=== PATIENT | male | born 1950 | race Caucasian/White ===

== ENCOUNTER 2022-01-28 20:39 | Emergency (ER) | payer BC, SELFPAY ==
[2022-01-28 20:41] VITALS: BP 185/94; PULSE 76; RESP 20; TEMP 36.2; O2SAT 95; BMI 33.6
[2022-01-28 20:51] VITALS: BP 172/92
--- NOTE | 2022-01-28 22:01 | EDS_ITS ---
HPI History of Present Illness Chief Complaint: Chest Other Narrative Narrative: Patient presenting with chest wall pain on the left lower anterior ribs. He states he was walking with tools in his hand when he tripped and fell over onto a cardboard box. He states a cardboard box was full of siding and it did not give. He states corner the box hit him in the left chest wall area. He has a superficial bruise over this area. He does not have any shortness of breath. He has mild pain and he has not take anything for this. It was suggested to him that he come get checked out the emergency room because of the fall. He did not have any head injury or LOC. He denies pain in his extremities. PFSH PFSH Allergy/AdvReac Type Severity Reaction Status Date / Time No Known Allergies Allergy Verified 01/28/22 20:41 Social History Smoking Status: Former smoker ROS ROS ED Constitutional Constitutional ED: Denies chills or fever(s) Eyes Eyes: Denies blurry vision or change in vision ENT ENT ED: Denies rhinorrhea or sore throat Cardiovascular Cardiovascular: Reports as per HPI Respiratory/Chest Respiratory/Chest: Denies cough or dyspnea Gastrointestinal Gastrointestinal: Denies abdominal pain or constipation Genitourinary Genitourinary ED: Denies dysuria or hematuria Musculoskeletal Musculoskeletal: Denies arthralgias or back pain Integumentary Reports Abrasions; Denies abscess Neurologic Neurologic: Denies headache(s) or paresthesias EXAM Physical Exam Const Vital Signs: 01/28/22 20:41 01/28/22 20:51 Temperature 97.2 F L Temperature Source Temporal Pulse Rate 76 Respiratory Rate 20 H Blood Pressure 185/94 H 172/92 H Blood Pressure Mean 124 118 Pulse Ox 95 Oxygen Delivery Method Room Air Positive well nourished General Appearance ED: NAD HEENT Reports moist mucous membranes normocephalic and atraumatic Eyes PERRL and EOMs intact bilaterally General Eye ED: Negative for pale conjunctiva or scleral icterus Chest Wall Chest Narrative: Tenderness to palpation left parasternal region with a linear bruise about 5 cm over this area. There is no crepitance. Equal symmetric chest wall rise and breath sounds. Resp normal respiratory effort and clear to auscultation bilaterally Auscultation: Negative for rales, rhonchi or wheezes Cardio regular rate and regular rhythm GI normal to inspection, nondistended, normoactive bowel sounds Neuro oriented x3 and CN's II-XII intact bilaterally Sensorium / Orientation: awake and alert Psych mental status grossly normal Skin Skin Narrative: As documented above MDM MDM MDM Narrative Medical decision making narrative: Patient with mechanical fall and injury to the left side of his chest wall. He is not short of breath. Patient declines analgesia. Will obtain a two-view chest x-ray. Chest x-ray 2 views on my interpretation shows no acute cardiopulmonary process. Cardiac silhouette is normal. No bony injury. No rib fractures. No pneumothorax. Radiologist interpretation agrees. Patient does not require anything for pain. Given his chest x-ray is normal I feel he can discharged home in stable condition. Impression: 1. Mechanical fall 2. Chest wall contusion Lab Data Attestation: I reviewed the patient's lab results. Radiography Diagnostic Testing: Clinical Impression(s) from Imaging Studies Chest X-Ray 01/28/22 22:07 IMPRESSION: No acute pulmonary disease. Electronically Signed: Vladimir Jose MD at 22:53 EDT , Discharge Plan Triage Chief Complaint: Chest Other ED Provider: Dallas Marks Dx/Rx/DC Orders Primary Care Provider: Harsh Dickerson NP Referrals: Harsh Dickerson BOROUGH COORDINATOR, BOROUGH COORDINATOR-C [Primary Care Provider] -
--- NOTE | 2022-01-28 22:07 | RAD_ITS ---
INDICATION: chest wall pain EXAMINATION: Frontal and lateral views of the chest. COMPARISON: None. FINDINGS: Frontal and lateral views of the chest were obtained. The cardiac silhouette is not enlarged. No confluent airspace disease. No pleural effusion or pneumothorax. No acute fracture identified. RAD/Chest PA and Lateral IMPRESSION: No acute pulmonary disease. Electronically Signed: Vladimir Jose MD at 22:53 EDT ,
[2022-01-28 23:17] VITALS: BP 174/94
== END 2022-01-28 23:18 | disposition home or self-care (01) ==
PROVIDERS: Emergency Provider Student in an Organized Health Care Education/Training Program; PCP Nurse Practitioner Family; Visit Provider Student in an Organized Health Care Education/Training Program
DX: S20.20XA Contusion of thorax, unspecified, initial encounter (principal); Z87.891 Personal history of nicotine dependence; W01.0XXA Fall on same level from slipping, tripping and stumbling without subsequent striking against object, initial encounter
CPT/HCPCS: 71046; 99282

== ENCOUNTER → 2022-07-23 | Outpatient (CLI) | payer BC, SELFPAY ==
--- NOTE | 2022-07-23 16:15 | RAD_ITS ---
INDICATION: PAIN EXAMINATION/TECHNIQUE: X-RAY - LEFT XR Knee 3 Views 3 VIEWS COMPARISON: None. FINDINGS: SOFT TISSUES: No soft tissue swelling or gas. No radiopaque foreign body. BONES/JOINTS: Knee arthroplasty is noted, there is normal alignment, no hardware failure.. Normal alignment. Preservation of the joint space, however small joint effusion present.. No sclerotic or destructive changes observed. RAD/Knee 3 Views IMPRESSION: 1. Status post total knee arthroplasty, normal alignment without evidence fracture or hardware failure. 2. There is a small joint effusion. 3. No destructive bony process. Electronically Signed: Cyrus Kinney MD at 1:09 EDT ,
== END | disposition home or self-care (01) ==
PROVIDERS: PCP Nurse Practitioner Family
DX: M25.562 Pain in left knee (principal)
CPT/HCPCS: 73562

== ENCOUNTER → 2022-12-04 | Outpatient (CLI) | payer BC, SELFPAY ==
--- NOTE | 2022-12-04 11:41 | EKG12_ITS ---
Test Reason : PRE-OP Blood Pressure : / mmHG Vent. Rate : 082 BPM Atrial Rate : 082 BPM P-R Int : 184 ms QRS Dur : 154 ms QT Int : 426 ms P-R-T Axes : 005 -02 000 degrees QTc Int : 497 ms Normal sinus rhythm with sinus arrhythmia Right bundle branch block Abnormal ECG Confirmed by MAT US ([id number]), sports editor DAVID ORTEGA ([id number]) on 12/16/2022 2:04:53 PM Referred By: Matt Silva Confirmed By:MAT SU
[2022-12-04 12:07] LABS: Absolute Lymphocyte Count 1.64 X10^3/uL (0.83-4.51); Absolute Neutrophil Count 5.2 X10^3/uL (2.0-7.7); Basophil# 0.05 X10^3/uL; Basophil% 0.7 % (0-1); Eosinophil# 0.14 X10^3/uL; Eosinophils% 1.8 % (0-5); Hematocrit 40.2 % (40-54); Hemoglobin 13.4 g/dL (13.0-16.5); Lymphocyte # 1.64 X10^3/ul (0.83-4.51); Lymphocyte % 21.5 % (19-41); Mean Corp Hgb Conc 33.3 g/dL (32-36); Mean Platelet Vol. 9.7 fl (6.2-12.0); Monocyte# 0.57 X10^3/uL; Monocyte% 7.5 % (0-10); NRBC Flagged by Analyzer 0 % (0-5); Neutrophil # 5.21 X10^3/uL (2.7-7.7); Neutrophil % 68.1 % (47-70); Platelet Count 325 K/mm3 (150-450); RBC Distribution Width CV 13.9 % (11.6-14.6); RBC Distribution Width SD 44.3 fl (35.1-43.9); Red Blood Count 4.62 M/mm3 (4.6-6.2); White Blood Count 7.6 K/mm3 (4.4-11.0)
[2022-12-04 12:46] LABS: Albumin, Serum 3.1 g/dL (3.2-5.0); Anion Gap 4 (5-15); BUN 16 mg/dL (7-18); BUN/Creat Ratio 17.5 RATIO (10-20); Calcium,Total 9.1 mg/dL (8.5-10.1); Chloride 104 mmol/L (98-107); Creatinine, Serum 0.92 mg/dL (0.70-1.30); EST Glomerular Filtration Rate 86 mL/min (>60); Est Glom Filt Rate - Afr Amer 104 mL/min (>60); Glucose 106 mg/dL (74-106); Potassium 4.4 mmol/L (3.5-5.1); Sodium Level 135 mmol/L (136-145)
== END | disposition home or self-care (01) ==
LOC: PSN 11:38
PROVIDERS: PCP Nurse Practitioner Family; Referring Provider Specialist; Visit Provider Specialist
DX: Z01.818 Encounter for other preprocedural examination (principal); Z01.810 Encounter for preprocedural cardiovascular examination
CPT/HCPCS: 36415; 80048; 82040; 85025; 93005

== ENCOUNTER → 2023-01-02 | Outpatient (CLI) | payer BC, SELFPAY ==
--- NOTE | 2023-01-02 | HIP_PTH ---
PATIENT: JESSICA MANTILLA [facility] U#:[id number] AGE/SX: 72/M ROOM: RE01/02/[address]: Dr. Matt Silva MD : 1950 BED: DIS: 01/02/2023 SPEC #: [id number] RECD: 01/03/23 09:36 STATUS: AVELINA REQ #: [id number] BREE: 01/02/23 00:[address]: Matt Silva DEPT: SURGICAL PATHOLOGY RECD BY: Charan Schulz ENTERED: 01/03/23 09:36 SP TYPE: TOTAL HIP OTHR DR: Harsh Dickerson, STUDENT SPECIALIST-C [facility] Tissues: Hip, NOS Procedures: Decalcification bone/plaque Special Stain Group I Surgery Specimen Level IV AFB Stain (control) GMS Stain (control) HEADER OPERATION: Left anterior total hip arthroplasty PRE-OP DIAGNOSIS: Severe osteoarthritis left hip TISSUE SUBMITTED: Left femur head MICROSCOPIC DIAGNOSIS Left femoral head, total hip replacement/resection: Femoral head with degenerative osteoarthritic changes and focal mild acute and chronic inflammation. Fragments of fibroadipose tissue and fibroconnective tissue acute and chronic inflammation and granulomatous reaction. See comment. SJ:maia 01/08/2023 GROSS DIAGNOSIS Special stains for acid fast bacilli and fungi are negative for organisms; matched controls are appropriate. Clinical correlation and appropriate follow up are necessary. Case has been reviewed in consultation with Dr. Middleton who concurs with the above diagnosis. IDC:AM MICROSCOPIC DESCRIPTION Slides are reviewed. GROSS DESCRIPTION Received is one container labeled with the patient's name and designated left femoral head bone and soft tissue. The specimen consists of a mcneal femoral head measuring 5.0 x 5.0 x 4.5 cm. Also present in the container is a detached piece of bone consistent with portion of femoral neck measuring 5.0 x 3.5 x 1.2 cm. The articular surface displays prominent osteophyte formation, eburnation and bone erosion. Also present in the specimen container are multiple irregular fragments of bone reamings and pink-yellow soft tissue measuring in aggregate 7.5 x 7.0 x 2.5 cm. Crm Manager sections are submitted in two cassettes as follows: 1 - soft tissue, 2 - bone after decalcification. / BRAD:maia 01/03/2023 TC:5 CPT: 53997, 92934, 20539 x2
== END | disposition home or self-care (01) ==
LOC: LABSPEC 15:35
PROVIDERS: PCP Nurse Practitioner Family; Referring Provider Specialist; Visit Provider Specialist
DX: M16.12 Unilateral primary osteoarthritis, left hip (principal)
CPT/HCPCS: 88305; 88311; 88312

== ENCOUNTER → 2023-01-20 | Outpatient (CLI) | payer BC, SELFPAY ==
--- NOTE | 2023-01-20 14:48 | VDLE_ITS ---
Reason For Study: LLE PAin RIGHT LEFT CFV is compressible, spontaneous, phasic, GSV is normal. competent and demonstrates normal CFV is compressible, spontaneous, phasic, augmentation. competent, and demonstrates normal Procedure augmentation. This is a venous duplex using B-mode, color FV is compressible, spontaneous, phasic, flow and spectral Doppler. competent and demonstrates normal Exam performed in department. augmentation. The exam was diagnostic. POP V is compressible, spontaneous, phasic, A preliminary report was called and/or faxed competent and demonstrates normal to [facility]. augmentation. T/P Trunk is compressible. PTV is compressible. LT PerV is compressible. VL/Venous Duplex US, Unilateral Interpretation Summary Deep veins of the left lower extremity are patent and compressible segmentally. There is no evidence of left lower extremity deep vein thrombosis. The left great saphenous vein boone ears patent and compressible segmentally. Ordering Physician: Matt Silva Referring Physician: Harsh Dickerson Performed By: Remi Fortune RVT
== END | disposition home or self-care (01) ==
LOC: CVS 14:39
PROVIDERS: PCP Nurse Practitioner Family; Referring Provider Specialist; Visit Provider Specialist
DX: M79.662 Pain in left lower leg (principal)
CPT/HCPCS: 93971

== ENCOUNTER → 2023-02-04 | Outpatient (CLI) | payer BC, SELFPAY ==
--- NOTE | 2023-02-04 08:02 | EKG12_ITS ---
Test Reason : EDEMA Blood Pressure : / mmHG Vent. Rate : 077 BPM Atrial Rate : 077 BPM P-R Int : 182 ms QRS Dur : 162 ms QT Int : 434 ms P-R-T Axes : 025 038 050 degrees QTc Int : 491 ms Normal sinus rhythm Right bundle branch block Abnormal ECG Confirmed by ARIANA FRANCE, ALEXA ([id number]), state editor DAVID ORTEGA ([id number]) on 02/05/2023 7:22:21 AM Referred By: Lida Prater Confirmed By:ALEXA LANE MD
[2023-02-04 09:37] LABS: Hematocrit 39.8 % (40-54); Hemoglobin 12.9 g/dL (13.0-16.5); Mean Corp Hgb Conc 32.4 g/dL (32-36); Mean Corpuscular Hgb 27.5 pg (27.0-32.0); Mean Corpuscular Volume 84.9 fL (80-94); Mean Platelet Vol. 10.3 fl (6.2-12.0); Platelet Count 310 K/mm3 (150-450); RBC Distribution Width CV 17.1 % (11.6-14.6); Red Blood Count 4.69 M/mm3 (4.6-6.2)
[2023-02-04 09:59] LABS: BNP,B-Type NATRIURETIC PEPTIDE 7.4 pg/mL (0-100)
[2023-02-04 10:06] LABS: ALB/GLOB Ratio 0.9 RATIO (0.9-2.4); AST(SGOT) 8 U/L (15-37); Alanine Aminotransfer ALT/SGPT 21 U/L (16-61); Albumin, Serum 3.3 g/dL (3.2-5.0); Alkaline Phosphatase 121 U/L (45-117); Anion Gap 5 (5-15); BUN 22 mg/dL (7-18); BUN/Creat Ratio 24.1 RATIO (10-20); Calcium,Total 9.1 mg/dL (8.5-10.1); Chloride 102 mmol/L (98-107); Creatinine, Serum 0.91 mg/dL (0.70-1.30); EST Glomerular Filtration Rate 86 mL/min (>60); Est Glom Filt Rate - Afr Amer 104 mL/min (>60); Globulin 3.8 g/dL (2.2-4.2); Glucose 105 mg/dL (74-106); Potassium 4.1 mmol/L (3.5-5.1); Protein, Total 7.1 g/dL (6.4-8.2); Sodium Level 137 mmol/L (136-145)
== END | disposition home or self-care (01) ==
LOC: PSN 08:01
PROVIDERS: PCP Nurse Practitioner Family; Referring Provider Nurse Practitioner Family; Visit Provider Nurse Practitioner Family
DX: R60.0 Localized edema (principal); I10 Essential (primary) hypertension; E66.9 Obesity, unspecified
CPT/HCPCS: 36415; 80053; 83880; 85027; 93005

== ENCOUNTER → 2023-06-24 | Outpatient (CLI) | payer BC, SELFPAY ==
--- NOTE | 2023-06-24 | IMM_PTH ---
PATHOLOGY RESULTS PATIENT: JESSICA MANTILLA LOC: [facility] U#:[id number] AGE/SX: 73/M ROOM: RE06/24/[address]: Dr. Prakash Wheeler MD : 1950 BED: DIS: 06/24/2023 SPEC #: [id number] RECD: 06/26/23 13:29 STATUS: AVELINA REQ #: [id number] BREE: 06/24/23 00:[address]: Prakash Wheeler DEPT: IMMUNOHISTOCHEMISTRY RECD BY: Jo Ontiveros ENTERED: 06/26/23 13:30 SP TYPE: IMMUNO OTHR DR: Lida Prater, KASIA Tissues: PROSTATE RIGHT PROSTATE LEFT Procedures: 34BE12 (add) P40 (add) 34BE12 (initial) PHYSICIAN & INSTITUTION [place] [id number] SPECIMEN INFORMATION: Tissue Source: C - Right prostate, base, core biopsy, D - Left prostate, apex, core biopsy Clinical Info: Elevated PSA Specimen Number: [id number] C & D CPT code: 98433, 41067 x3 METHODOLOGY: Deparaffinized sections of prefer/formalin-fixed tissue or PAP/DQ stained slides are incubated with monoclonal/polyclonal antibodies/oligonucleotide probes. Localization is made via biotin free immunoperoxidase method. Appropriate controls are performed and reacted as expected. Results on target cell population are indicated in the following table: RESULTS: ANTIBODY / CLONE RESULT Block C 34BE12 (34BE12) negative P40 (BC28) negative Block D 34BE12 (34BE12) negative * P40 (BC28) negative * *?Positive in the area of high-grade prostatic intraepithelial neoplasia. These tests were developed and their performance characteristics determined by [facility]. They may not have been cleared or approved by the U.S. Food and Drug Administration. The FDA has determined that such clearance or approval is not necessary. The above immunohistochemical/dualISH markers are ordered and reviewed by the Pathologist. INTERPRETATION: C. Right prostate, base, core biopsy: Adenocarcinoma. D. Left prostate, apex, core biopsy: Adenocarcinoma. Focal high-grade prostatic intraepithelial neoplasia (HGPIN). SJ:maia 06/27/2023
--- NOTE | 2023-06-24 | PROSBIL_PTH ---
PATHOLOGY RESULTS PATIENT: JESSICA MANTILLA [facility] U#:[id number] AGE/SX: 73/M ROOM: RE06/24/[address]: Dr. Prakash Wheeler MD : 1950 BED: DIS: 06/24/2023 SPEC #: [id number] RECD: 06/25/23 09:16 STATUS: AVELINA JAYCEE #: [id number] BREE: 06/24/23 00:[address]: Prakash Wheeler DEPT: SURGICAL PATHOLOGY RECD BY: Charan Schulz ENTERED: 06/25/23 09:17 SP TYPE: PROST BX TATIANA DR: Lida Prater, SENA-Emilee Tissues: PROSTATE RIGHT PROSTATE RIGHT PROSTATE RIGHT PROSTATE LEFT PROSTATE LEFT PROSTATE LEFT Procedures: PROSTATE BX HEADER OPERATION: Bilateral prostate biopsy PRE-OP DIAGNOSIS: Elevated prostate specific antigen TISSUE SUBMITTED: A - Right apex, B - Right mid, C - Right base, D - Left apex, E - Left mid, F - Left base MICROSCOPIC DIAGNOSIS A. Right prostate, apex, core biopsy: Prostatic adenocarcinoma. Bharti grade: 3+3=6 Number of cores involved: 1/1 Proportion of tissue involved: ~25% Perineural invasion: Not identified. Greatest tumor length: 0.3 cm B. Right prostate, mid, core biopsy: Prostatic adenocarcinoma. [place] grade: 3+3=6 Number of cores involved: 1/1 Proportion of tissue involved: ~25% Perineural invasion: Not identified. Greatest tumor length: 0.3 cm C. Right prostate, base, core biopsy: Prostatic adenocarcinoma. Bhrati grade: 3+3=6 Number of cores involved: 1/1 Proportion of tissue involved: ~10-15%, discontinuous Perineural invasion: Not identified. Greatest tumor length: 0.6 cm, discontinuous See comment. D. Left prostate, apex, core biopsy: Prostatic adenocarcinoma. [place] grade: 3+3=6 Number of cores involved: 1/1 Proportion of tissue involved: <5% Perineural invasion: Not identified. Greatest tumor length: 0.1 cm Focal high-grade prostatic intraepithelial neoplasia (HGPIN). See comment. E. Left prostate, mid, core biopsy: Prostatic adenocarcinoma. Bharti grade: 3+3=6 Number of cores involved: 1/1 Proportion of tissue involved: ~50% Perineural invasion: Not identified. Greatest tumor length: 0.6 cm F. Left prostate, base, core biopsy: Prostatic adenocarcinoma. [place] grade: 3+4=7 Number of cores involved: 1/1 Proportion of tissue involved: ~10% Perineural invasion: Not identified. Greatest tumor length: 0.5 cm, discontinuous SJ:maia 06/26/2023 COMMENT C & D. Immunohistochemistry ([id number]) supports the above diagnosis. Case has been reviewed in consultation with Dr. Middleton who concurs with the above diagnosis. IDC:MAGALIS MICROSCOPIC DESCRIPTION Slides are reviewed. GROSS DESCRIPTION A - Received is one container designated prostate, right apex. The specimen consists of one elongated fragment of light mcneal-white soft tissue measuring 1.4 cm in length and 0.1 cm in diameter. The specimen is totally submitted in one cassette. B - Received is one container designated prostate, right mid. The specimen consists of one elongated fragment of light mcneal-white soft tissue measuring 1.2 cm in length and 0.1 cm in diameter. The specimen is totally submitted in one cassette. C - Received is one container designated prostate, right base. The specimen consists of one elongated fragment of light mcneal-white soft tissue measuring 1.0 cm in length and 0.1 cm in diameter. The specimen is totally submitted in one cassette. D - Received is one container designated prostate, left apex. The specimen consists of one elongated fragment of light mcneal-white soft tissue measuring 0.6 cm in length and 0.1 cm in diameter. The specimen is totally submitted in one cassette. E - Received is one container designated prostate, left mid. The specimen consists of one elongated fragment of light mcneal-white soft tissue measuring 1.0 cm in length and 0.1 cm in diameter. The specimen is totally submitted in one cassette. F - Received is one container designated prostate, left base. The specimen consists of one elongated fragment of light mcneal-white soft tissue measuring 1.5 cm in length and 0.1 cm in diameter. The specimen is totally submitted in one cassette. / SJ:rg 06/25/2023 TC:0 [facility]: [id number]
== END | disposition home or self-care (01) ==
LOC: LABSPEC 16:00
PROVIDERS: PCP Nurse Practitioner Family; Referring Provider Urology; Visit Provider Urology
DX: C61 Malignant neoplasm of prostate (principal); R97.20 Elevated prostate specific antigen [PSA]
CPT/HCPCS: 88305; 88341; 88342; G0416

== ENCOUNTER 2023-07-30 05:44 | Day surgery (SDC) | payer BC, SELFPAY ==
[2023-07-30] MEDS: Lactated Ringers 1,000 ML 15 ML IV (06:11)
[2023-07-30 06:12] VITALS: BP 156/92; PULSE 86; RESP 17; TEMP 36.9; O2SAT 96; BMI 33.5
[2023-07-30] MEDS: Cefazolin 2 GM in 0.9% Normal Saline (100mL Bag) 100 ML IV (07:29)
--- NOTE | 2023-07-30 07:50 | PCM.HP.STD ---
HPI - General General Date of Service: 07/30/23 Chief Complaint: Prostate cancer HPI Narrative JESSICA MANTILLA, is a 73 M who presents for placement of gold markers and spacer gel he has intermediate risk prostate cancer plan to start him on hormone deprivation therapy and he has been planning to do radiation therapy [facility] Medical History BPH (benign prostatic hyperplasia) Cancer Elevated PSA Former smoker Gastric reflux History of stress test Hypertension Wears dentures Wears glasses Home Medications acetaminophen 500 mg tablet (Tylenol Extra Strength) 500 mg PO DAILY pain 07/15/23 [History Last Taken 07/29/23] cholecalciferol (vitamin D3) 25 mcg (1,000 unit) tablet 25 mcg PO DAILY 07/15/23 [History Last Taken 07/29/23] famotidine 20 mg tablet 20 mg PO DAILY 07/15/23 [History Last Taken 07/29/23] lisinopril 5 mg tablet 5 mg PO DAILY 07/15/23 [History Last Taken 07/30/23] ciprofloxacin HCl 500 mg tablet (Cipro) 500 mg PO BID #10 tabs 07/30/23 [Rx Last Taken Unknown] Allergy/AdvReac Type Severity Reaction Status Date / Time No Known Allergies Allergy Verified 07/30/23 05:48 Surgical History History of bilateral knee replacement History of left hip replacement History of surgery on upper extremity Social History Smoking Status: Former smoker Smokeless tobacco user: other alcohol intake: never substance use type: does not use caffeine: Yes (4+ caffeinated drinks/day) Vital Signs Vital Signs Vital Signs: 07/30/23 06:12 07/30/23 06:12 Temperature 98.4 F Temperature Source Temporal Pulse Rate 86 Respiratory Rate 17 Respiratory Pattern Normal Blood Pressure 156/92 H Blood Pressure Mean 113 Blood Pressure Source Monitor Blood Pressure Position Semi-Fowlers Blood Pressure Location Left Arm Pulse Ox 96 Oxygen Delivery Method Room Air Weight Weight: 97 kg Body Mass Index (BMI) 33.5
--- NOTE | 2023-07-30 07:51 | DCINST_ITS ---
Discharge Instructions Diet Discharge Diet: No restrictions Activity Discharge Activity: Return to Normal Activity and May Not Drive (while taking narcotic pain medications.) Dressing / Incision Call your doctor if you observe: Fever of 101 or Higher Follow Up Care Please Follow Up With: Prakash Wheeler MD When: Call [phone] for an appointment, 2 weeks for hormone shot Test Results: Test results from this visit will be discussed in further detail at your follow- up appointment, if applicable. Discharge Plan Admission Primary Reason for Your Visit: markers and spacer gel Attending Provider: Prakash Wheeler Primary Care Provider: Lida Prater NP Discharge Orders/Prescriptions Prescriptions: New ciprofloxacin HCl [Cipro] 500 mg tablet 500 mg PO BID Qty: 10 0RF Continued lisinopril 5 mg tablet 5 mg PO DAILY famotidine 20 mg tablet 20 mg PO DAILY acetaminophen [Tylenol Extra Strength] 500 mg tablet 500 mg PO DAILY cholecalciferol (vitamin D3) 25 mcg (1,000 unit) tablet 25 mcg PO DAILY Referrals / Follow Up: Prakash Wheeler MD [Med Staff - Active Staff] - Lida Prater NP, HOME OFFICE CLAIMS EXAMINER-C [Primary Care Provider] - Disposition Disposition (needs filled in before D/C Order can be placed): Home, Self Care
--- NOTE | 2023-07-30 07:51 | OP.PCM_ITS ---
Report of Operation Date of Procedure: 07/30/23 Pre-Operative Diagnosis: Prostate cancer Post-Operative Diagnosis: Same Surgery/Procedure Performed:: Transperineal placement of gold markers and placement of spacer gel risk matrix Description of Surgical Findings:: In the preoperative area I reviewed with the patient how the procedure is done we talked about the risk of the procedure including the risk of infection, bleeding, migration of the spacer gel, the patient is planning to have radiation to the prostate he understands that the spacer gel has demonstrated benefit in reducing the risk of toxicity from the ration radiation to the rectum but there is no guarantees that this spacer gel will prevent any serious complications or toxicity to the rectum or bowels. After reviewing this with the patient and his family organ to proceed with placement of a spacer gel matrix. Patient was taken back to the operating room after smooth induction of anesthesia he was placed supine on the table. The genitals and perineum were prepped and draped in usual sterile fashion. I then introduced a biplanar ultrasound probe into the rectum and performed ultrasonography and identified the Denonvilliers' fascia the prostate mid base and apex and seminal vesicles. The spacer gel mix was then prepared on the back table per manufactures instruction. Under ultrasound guidance in the midline perineum a bevel needle down we advanced through the perineum below the prostate into the space of Denonvilliers' fascia. This space which could be identified by ultrasound with a bright white layer between the prostate and the rectum. I then injected a puff of normal saline to identify the space further. After I confirmed that the needle was in the correct space in the mid prostate and the space of Denonvilliers' fascia between the rectum and the prostate. Then over the course of 15 seconds the gel matrix was injected slowly there was nice separation between the prostate and the rectum at the gel matrix was injected. The position of the gel matrix was confirmed by ultrasound. The penis and testicles were prepped and draped in usual sterile fashion, ultrasound probe was placed into the rectum and biplanar ultrasound was performed on the prostate. Identified the base mid and apex of the prostate identified the transition zone prostate. Then using a needle the first head inspector and center marker was placed into the right base of the prostate, the second head inspector and center marker was placed in the left base of the prostate, and the third core marker was placed in the right apex of the prostate after all 3 markers were placed the placement of the markers were confirmed by ultrasonography. Then the injection needle was removed intact. Patient's perineum was cleaned patient was taken out of stirrups and then taken back to the PACU in good condition.
[2023-07-30 07:55] VITALS: BP 125/76; BP 156/92; PULSE 78; RESP 16; TEMP 36.2; O2SAT 96
[2023-07-30 08:00] VITALS: BP 128/75; BP 156/92; PULSE 78; RESP 16; O2SAT 94
[2023-07-30 08:05] VITALS: BP 137/71; BP 156/92; PULSE 77; RESP 16; TEMP 36.1; O2SAT 94
[2023-07-30 08:21] VITALS: BP 156/92
== END 2023-07-30 08:30 | disposition home or self-care (01) ==
LOC: SDC 05:45 → AC 05:46
PROVIDERS: PCP Nurse Practitioner Family; Referring Provider Urology; Visit Provider Urology
PROC: (CPT 55874; principal; 2023-07-30 07:15)
DX: C61 Malignant neoplasm of prostate (principal); Z87.891 Personal history of nicotine dependence; K21.9 Gastro-esophageal reflux disease without esophagitis; I10 Essential (primary) hypertension; Z79.899 Other long term (current) drug therapy
CPT/HCPCS: 55876; 55874; 00400; J7120; J2405

== ENCOUNTER → 2023-08-06 | Outpatient (CLI) | payer BC, SELFPAY ==
--- NOTE | 2023-08-06 13:10 | MRI_ITS ---
STUDY: MR PELVIS WITH T WITHOUT CONTRAST REASON FOR EXAM: Male, 73 years old. eval extent of disease for prostate cancer -- planning for XRT TECHNIQUE: Standardized prostate protocol MRI pelvis pre and post IV contrast with 3 plane small field of view T2 and diffusion imaging. Wide field of view axial T2 and T1 pre and post IV contrast obtained through the mid to inferior pelvis IV 19 cc clariscan was administered for the contrast portion of the examination. COMPARISON: Chest radiograph January 28, 2022. FINDINGS: Prostate 3.3 x 3.3 x 4.1 cm Transition zone: 1.0 cm irregular nonencapsulated T2 hypointensity at the right anterior apex, series 8 image 21 without focal enhancement, marked increased diffusion and decreased ADC signal, without extraprostatic extension PI-RAD 4. Otherwise unremarkable heterogeneous signal. Peripheral zone: Diffuse heterogeneous T2 signal. 6 mm moderate increased diffusion signal with low ADC left posterior lateral body with associated irregular T2 hypointensity best seen on sagittal sequence image 9, PI-RAD 4. No other discrete mass is seen. No focal hyperenhancement. No focal capsular bulge or extracapsular extension. Normal rectal prostatic angle unremarkable seminal vesicles. Symmetric normal bladder wall. Focal fluid signal posterior to the prostate anterior to the rectum presumably secondary to biopsy. Pelvis: Left hip arthroplasty with surrounding artificial signal change. Cannot exclude intramuscular edema along the left adductor musculature. Otherwise unremarkable bone marrow signal in the limited study [id number]. No adenopathy in the study [id number]. Fat-containing bilateral inguinal hernias without inflammation. MRI/Pelvis W/WO Contrast IMPRESSION: Left posterior lateral body peripheral zone and right anterior apex transition zone PI-RADS 4 lesions without evidence of extraprostatic extension of disease or metastasis in the mid to low pelvis [id number]. Left hip arthroplasty hardware degrades surrounding evaluation. Cannot exclude intramuscular edema surrounding the left hip. Electronically Signed: Gui Blanco MD at 15:46 EDT ,
[2023-08-06 13:41] LABS: CREATININE FINGERSTICK 1.2 mg/dL (0.70-1.30); EGFR FINGERSTICK > 60.0000 mL/min (>60)
== END | disposition home or self-care (01) ==
PROVIDERS: PCP Nurse Practitioner Family; Referring Provider Student in an Organized Health Care Education/Training Program; Visit Provider Student in an Organized Health Care Education/Training Program
DX: Z01.812 Encounter for preprocedural laboratory examination (principal); C61 Malignant neoplasm of prostate
CPT/HCPCS: 72197; A9575

== ENCOUNTER → 2023-11-17 | Outpatient (CLI) | payer BC, SELFPAY ==
[2023-11-17 10:09] LABS: PSA,Total- Diagnostic 0.04 ng/mL (0.0-4.0)
== END | disposition home or self-care (01) ==
LOC: LAB 09:03
PROVIDERS: PCP Nurse Practitioner Family; Referring Provider Nurse Practitioner; Visit Provider Nurse Practitioner
DX: C61 Malignant neoplasm of prostate (principal)
CPT/HCPCS: 36415; 84153

== ENCOUNTER 2023-12-03 00:03 | Emergency (ER) | payer BC, SELFPAY ==
[2023-12-03] VITALS (18 sets, daily range): BP systolic 101–154; BP diastolic 65–80; PULSE 71–85; RESP 13–22; TEMP 36.9–37; O2SAT 90–99; BMI 34.2
--- NOTE | 2023-12-03 00:29 | RAD_ITS ---
STUDY: X-RAY CHEST REASON FOR EXAM: Male, 73 years old patient with chest pain. TECHNIQUE: PA and lateral views of the chest. COMPARISON: January 28, 2022. FINDINGS: Cardiac monitoring leads are present. Lungs are expanded with prominence of the bronchovascular markings. There is no demonstrated pleural abnormality. Normal size heart. Normal mediastinum and alonso. There is prominence of the pulmonary hilar arteries without peripheral pulmonary vascular congestion, suggesting pulmonary hypertension. There is atherosclerotic calcification of the aortic arch with tortuosity. Normal visualized thoracic spine. Normal visualized ribs, clavicles, and shoulders. There is no demonstrated abnormality of the visualized soft tissue structures of the upper abdomen. RAD/Chest PA and Lateral IMPRESSION: No radiographic evidence of acute cardiopulmonary disease. Electronically Signed: Meena Peacock MD at 2:28 EDT ,
--- NOTE | 2023-12-03 00:29 | EKG12_ITS ---
Test Reason : PAIN Blood Pressure : / mmHG Vent. Rate : 081 BPM Atrial Rate : 081 BPM P-R Int : 194 ms QRS Dur : 144 ms QT Int : 416 ms P-R-T Axes : 028 058 006 degrees QTc Int : 483 ms Normal sinus rhythm with sinus arrhythmia Right bundle branch block Abnormal ECG When compared with ECG of 04-FEB-2023 08:10, T wave inversion now evident in Inferior leads T wave inversion more evident in Anterior leads Confirmed by Delio Paredes ([id number]), senior technical editor DAVID ORTEGA ([id number]) on 12/04/2023 9:13:41 AM Referred By: Confirmed By:Delio Paredes
[2023-12-03 00:40] LABS: Absolute Lymphocyte Count 1.44 X10^3/uL (0.83-4.51); Absolute Neutrophil Count 3.6 X10^3/uL (2.0-7.7); Basophil# 0.04 X10^3/uL; Basophil% 0.7 % (0-1); Eosinophil# 0.15 X10^3/uL; Eosinophils% 2.5 % (0-5); Hematocrit 36.9 % (40-54); Hemoglobin 12.5 g/dL (13.0-16.5); Lymphocyte # 1.44 X10^3/ul (0.83-4.51); Lymphocyte % 24.4 % (19-41); Mean Corp Hgb Conc 33.9 g/dL (32-36); Mean Corpuscular Hgb 30.5 pg (27.0-32.0); Mean Platelet Vol. 10.7 fl (6.2-12.0); Monocyte% 10.2 % (0-10); NRBC Flagged by Analyzer 0 % (0-5); Neutrophil # 3.63 X10^3/uL (2.7-7.7); Neutrophil % 61.4 % (47-70); Platelet Count 177 K/mm3 (150-450); RBC Distribution Width CV 16.3 % (11.6-14.6); RBC Distribution Width SD 52.2 fl (35.1-43.9); White Blood Count 5.9 K/mm3 (4.4-11.0)
[2023-12-03 00:59] LABS: Anion Gap 6 (5-15); BUN 24 mg/dL (7-18); Calcium,Total 8.7 mg/dL (8.5-10.1); Chloride 109 mmol/L (98-107); Creatinine, Serum 1.09 mg/dL (0.70-1.30); EST Glomerular Filtration Rate 70 mL/min (>60); Est Glom Filt Rate - Afr Amer 85 mL/min (>60); Estimated Creatinine Clearance 65.65 ml/min; Glucose 126 mg/dL (74-106); Sodium Level 141 mmol/L (136-145); Troponin-I HS 26 pg/mL (3.0-78.0)
--- NOTE | 2023-12-03 01:05 | ED.RN ---
Notified Dr. Sanchez of pt O2 @ 89% on RA. Pt placed on 2L NC after verbal order. Improved to 93%.
--- NOTE | 2023-12-03 01:10 | CT_ITS ---
STUDY: CT ABDOMEN AND PELVIS WITHOUT CONTRAST REASON FOR EXAM: Male, 73 years old patient with left-sided flank pain. RADIATION DOSAGE (If Supplied By Facility): CTDIvol = ( 12.92 ) mGy, DLP = ( 710.11 ) mGycm TECHNIQUE: Transaxial images were obtained from the dome of the diaphragm to the symphysis pubis without oral contrast, and without intravenous contrast. Sagittal and coronal images were reconstructed. Individualized dose optimization techniques were used for this CT. COMPARISON: Prior comparison studies are not available for review at this time. FINDINGS: The visualized lung bases are unremarkable. The visualized portions of the heart are within normal limits. There are small nodules within the left lobe of liver with the largest measuring 2.2 cm in greatest dimension. The liver appears to be enlarged measuring up to 23.7 cm in greatest dimension. Normal gallbladder and extrahepatic biliary system. Normal spleen. Normal pancreas. Normal bilateral adrenal glands. Normal right kidney. There appear to be several left-sided parapelvic renal cysts versus dilated calyces. Normal visualized stomach. No obvious dilated bowel, ascites or pneumoperitoneum. Small bowel has a grossly normal appearance. There is stool and/or gas visible throughout the colon with scattered diverticula. The appendix is visualized and appears normal. Abdominal aorta is mildly tortuous with multifocal atherosclerotic calcification. There is no obvious aneurysm. Normal inferior vena cava. Normal retroperitoneum. Urinary bladder is not distended with what appears to be a Giraldo catheter. Scattered metallic opacities are visible in the prostate suggesting possible sequela of brachytherapy for prostate cancer. There is a right-sided inguinal hernia containing adipose tissue. There are scattered degenerative changes of the visualized spine. The patient has had a left hip arthroplasty. There are degenerative changes of the pubic symphysis. CT/Abdomen/Pelvis without Cont IMPRESSION: 1. Diffuse dilatation of the left renal calyces suggests possible sequela of previous obstruction or sequela of papillary necrosis. 2. No obvious acute hydronephrosis, hydroureter or radiopaque ureteral calculus. 3. Small nonspecific left-sided hepatic nodules. 4. Hepatomegaly. Electronically Signed: Meena Peacock MD at 2:39 EDT ,
[2023-12-03 01:37] LABS: Bacteria 0 SEEN /hpf (None Seen); Mucous, Urine 0 SEEN /hpf (<or=2+); Red Blood Cells-Urine 0 SEEN /hpf (0-5); Squamous Epithelial Cells - UA 0 SEEN /hpf (0-5)
[2023-12-03 01:40] LABS: Color, Urine Yellow (Yellow); Glucose, Dipstick Normal (Normal); Ketone-Dipstick 5 mg/dl (Negative); Leukocyte Esterase-Dipstick 25 /ul (Negative); Nitrite-Dipstick Negative (Negative); Occult Blood-Urine Negative /ul (Negative); Protein-Dipstick 15 mg/dl (Negative); Specific Gravity, Urine 1.025 (1.002-1.030); Urine Bilirubin Dipstick Negative (Negative); Urine Clarity Clear (Clear); Urine Urobilinogen 1 mg/dl (Normal)
[2023-12-03 01:46] LABS: White Blood Cells 0-5 SEEN /hpf (0-5)
[2023-12-03 02:45] LABS: Troponin-I HS 24 pg/mL (3.0-78.0)
--- NOTE | 2023-12-03 04:10 | EDS_ITS ---
HPI History of Present Illness Chief Complaint: Other, Pain/Inj Informant: patient and spouse/S.O. Narrative Narrative: Patient is a 73-year-old male with history of hypertension and prostate cancer. He states this evening he was at home sitting/resting when he developed left- sided abdominal/flank pain. He states there was no trauma or excessive activity. He reports this pain was sharp in nature and radiating towards his abdomen. He states that he took [id number] medication without symptom improvement and secondary to this comes in for evaluation. He denies any dysuria or hematuria. He does state that upon arrival to the ER the pain has almost completely resolved. [facility] Medical History (Updated 12/05/23 @ 00:[address] Bakari Sanchez, DO) Prostate cancer Wears glasses Wears dentures Cancer Gastric reflux Former smoker History of stress test Hypertension Elevated PSA BPH (benign prostatic hyperplasia) Home Medications ?Medication ?Instructions ?Recorded ?Last Taken ?Type acetaminophen 500 mg tablet 500 mg PO DAILY pain 07/15/23 07/29/23 History (Tylenol Extra Strength) cholecalciferol (vitamin D3) 25 25 mcg PO DAILY 07/15/23 07/29/23 History mcg (1,000 unit) tablet famotidine 20 mg tablet 20 mg PO DAILY 07/15/23 07/29/23 History lisinopril 5 mg tablet 10 mg PO DAILY 11/03/23 Unknown History Allergy/AdvReac Type Severity Reaction Status Date / Time No Known Allergies Allergy Verified 12/03/23 00:06 Surgical History History of bilateral knee replacement History of surgery on upper extremity History of left hip replacement Social History Smoking Status: Former smoker Smokeless tobacco user: other alcohol intake: never substance use type: does not use caffeine: Yes (4+ caffeinated drinks/day) ROS ROS ED Constitutional Constitutional ED: Denies chills or fever(s) Eyes Eyes: Denies blurry vision or change in vision ENT ENT ED: Denies sore throat Cardiovascular Cardiovascular: Denies chest pain or palpitations Respiratory/Chest Respiratory/Chest: Denies cough or dyspnea Gastrointestinal Gastrointestinal: Reports abdominal pain; Denies diarrhea, nausea or vomiting Genitourinary Genitourinary ED: Denies dysuria or hematuria Musculoskeletal Musculoskeletal: Reports back pain Integumentary Denies rash Neurologic Neurologic: Denies headache(s) Hematologic/Lymphatic Hematologic/Lymphatic: Denies easy bleeding or easy bruising EXAM Physical Exam Const Vital Signs: 12/03/23 00:06 12/03/23 00:08 12/03/23 00:09 Temperature 98.5 F Temperature Source Temporal Pulse Rate 85 Respiratory Rate 22 H Respiratory Effort Normal Non-Labored Respiratory Depth Respiratory Pattern Normal Blood Pressure 154/76 H Blood Pressure Mean 102 Pulse Ox 90 94 Oxygen Delivery Method Room Air Nasal Cannula Oxygen Flow Rate (L/min) 2 12/03/23 00:22 12/03/23 00:30 12/03/23 00:30 Temperature Temperature Source Pulse Rate 79 81 Respiratory Rate 19 H 20 H Respiratory Effort Respiratory Depth Respiratory Pattern Blood Pressure 125/73 H 125/73 H Blood Pressure Mean 89 89 Pulse Ox 94 94 Oxygen Delivery Method Room Air Oxygen Flow Rate (L/min) 12/03/23 00:45 12/03/23 01:00 12/03/23 01:04 Temperature Temperature Source Pulse Rate 78 78 Respiratory Rate 19 H 16 Respiratory Effort Short of Breath Respiratory Depth Normal Respiratory Pattern Normal Blood Pressure 119/69 106/67 Blood Pressure Mean 84 81 Pulse Ox 93 92 Oxygen Delivery Method Room Air Room Air Room Air Oxygen Flow Rate (L/min) 12/03/23 01:15 12/03/23 01:30 12/03/23 01:37 Temperature Temperature Source Pulse Rate 76 83 Respiratory Rate 17 19 H Respiratory Effort Respiratory Depth Respiratory Pattern Blood Pressure 117/68 104/75 Blood Pressure Mean 84 85 Pulse Ox 93 97 Oxygen Delivery Method Oxygen Flow Rate (L/min) 12/03/23 01:45 12/03/23 02:00 12/03/23 02:15 Temperature Temperature Source Pulse Rate 76 73 74 Respiratory Rate 19 H 18 16 Respiratory Effort Respiratory Depth Respiratory Pattern Blood Pressure 101/76 122/71 H 112/71 Blood Pressure Mean 85 88 86 Pulse Ox 95 95 96 Oxygen Delivery Method Room Air Oxygen Flow Rate (L/min) 12/03/23 02:30 12/03/23 02:45 12/03/23 03:00 Temperature Temperature Source Pulse Rate 74 75 73 Respiratory Rate 19 H 13 15 Respiratory Effort Respiratory Depth Respiratory Pattern Blood Pressure 116/70 107/65 109/65 Blood Pressure Mean 84 79 80 Pulse Ox 92 95 98 Oxygen Delivery Method Room Air Room Air Oxygen Flow Rate (L/min) 12/03/23 03:15 12/03/23 03:36 Temperature Temperature Source Pulse Rate 71 72 Respiratory Rate 16 19 H Respiratory Effort Respiratory Depth Respiratory Pattern Blood Pressure 109/78 Blood Pressure Mean 89 Pulse Ox 99 98 Oxygen Delivery Method Room Air Room Air Oxygen Flow Rate (L/min) Positive well nourished and well developed General Appearance ED: well developed; Negative for pallor HEENT HEENT Narrative: No tongue or lip swelling no oral lesions no airway edema or compromise No signs of infection noted in the posterior pharynx Eyes PERRL and EOMs intact bilaterally General Eye ED: Negative for scleral icterus Neck supple and no JVD Chest Wall palpation of chest normal Chest Narrative: No bony deformity or crepitus noted Resp normal respiratory effort and clear to auscultation bilaterally Resp Narrative: Breath sounds are diminished throughout but overall clear to auscultation with slight tachypnea However no nasal flaring or retractions or accessory muscle use Cardio regular rate and regular rhythm Rate: other Other Details: Heart is regular rate and rhythm Radial and carotid pulses are equal and symmetric GI normal to inspection, nondistended, normoactive bowel sounds, non-tender, non- distended and no masses GI Narrative: No voluntary guarding or rigidity or pulsatile mass No increased tympany or fluid wave noted Auscultation: normoactive bowel sounds Palpation: soft Back/Spine Back/Spine Narrative: There is mild left-sided CVA pain present No overlying soft tissue changes to suggest trauma or infection Extremity normal to inspection Neuro oriented x3, CN's II-XII intact bilaterally and no sensory deficits noted Sensorium / Orientation: alert Motor Exam: strength 5/5 throughout Psych mental status grossly normal Skin no rashes or lesions noted General Skin Exam: Negative for jaundice or pallor MDM MDM MDM Narrative Medical decision making narrative: Patient arrived to ER mildly hypertensive otherwise afebrile. He reported sudden onset left-sided back pain while at rest. He also stated there was mild radiation towards the abdomen. Differential diagnosis could be atypical acute coronary syndrome versus cardiac dysrhythmia versus kidney stone versus UTI versus pyelonephritis. Secondary to this basic blood work was obtained as well as urine sample and noncontrast CT of the abdomen and pelvis. Patient's troponins were 26 and 24 which are normal and without variation and go against acute coronary syndrome. Urine sample showed no sign of infection going against UTI/pyelonephritis. Patient has no signs of acute kidney injury. Noncontrast CT scan showed dilation of the renal calyces which could be secondary to a recent obstruction. As the patient reported severe sharp pain that came on without any type of trauma or warning and then spontaneously improved I do feel that the most likely had a stone that has passed since his arrival to the ER. Therefore his vitals are stable and his pain is resolved and his workup does not show acute kidney injury or uroseptic changes or acute cardiac event I do not feel there is need for admission to the hospital and patient can be discharged home History & Record Review Discussion w/independent historian: Patient and Significant other Lab Data Attestation: I reviewed the patient's lab results. Labs: Laboratory Results - last 24 hr 12/03/23 12/03/23 12/03/23 00:13 01:32 02:15 WBC 5.9 RBC 4.10 L Hgb 12.5 L Hct 36.9 L MCV 90.0 MCH 30.5 MCHC 33.9 RDW Std Deviation 52.2 H RDW Coeff of Juancarlos 16.3 H Plt Count 177 MPV 10.7 Immature Gran % (Auto) 0.800 Neut % (Auto) 61.4 Lymph % (Auto) 24.4 Gem % (Auto) 10.2 H Eos % (Auto) 2.5 Baso % (Auto) 0.7 Absolute Neuts (auto) 3.6 Absolute Lymphs (auto) 1.44 Nucleated RBC % 0 Sodium 141 Potassium 4.0 Chloride 109 H Carbon Dioxide 26.0 Anion Gap 6 BUN 24 H Creatinine 1.09 Estim Creat Clear Calc 65.65 Est GFR (MDRD) Af Amer 85 Est GFR (MDRD) Non-Af 70 BUN/Creatinine Ratio 22.0 H Glucose 126 H Calcium 8.7 Troponin I High Sens 26 24 Urine Color Yellow Urine Clarity Clear Urine pH 5.0 Ur Specific Winston 1.025 Urine Protein 15 H Urine Glucose (UA) Normal Urine Ketones 5 H Urine Occult Blood Negative Urine Nitrite Negative Urine Bilirubin Negative Urine Urobilinogen 1 H Ur Leukocyte Esterase 25 H Urine RBC 0 SEEN Urine WBC 0-5 SEEN Ur Squamous Epith Cells 0 SEEN Urine Bacteria 0 SEEN Urine Mucus 0 SEEN Radiography Diagnostic Testing: Clinical Impression(s) from Imaging Studies Chest X-Ray 12/03/23 00:29 IMPRESSION: No radiographic evidence of acute cardiopulmonary disease. Electronically Signed: Meena Peacock MD at 2:28 EDT , Abdomen/Pelvis CT 12/03/23 01:10 IMPRESSION: 1. Diffuse dilatation of the left renal calyces suggests possible sequela of previous obstruction or sequela of papillary necrosis. 2. No obvious acute hydronephrosis, hydroureter or radiopaque ureteral calculus. 3. Small nonspecific left-sided hepatic nodules. 4. Hepatomegaly. Electronically Signed: Meena Peacock MD at 2:39 EDT , Discharge Plan Triage Chief Complaint: Other, Pain/Inj Other Complaint: Hypertension ED Provider: Bakari Sanchez Dx/Rx/DC Orders Clinical Impression: Left flank pain, Dilation of renal calices, Prostate cancer, Hypertension Instructions: Kidney Problems, ED Flank Pain, Uncertain Cause Prescriptions: No Action famotidine 20 mg tablet 20 mg PO DAILY acetaminophen [Tylenol Extra Strength] 500 mg tablet 500 mg PO DAILY cholecalciferol (vitamin D3) 25 mcg (1,000 unit) tablet 25 mcg PO DAILY lisinopril 5 mg tablet 10 mg PO DAILY Primary Care Provider: Lida Prater NP Referrals: Lida Prater NP, [employer] [Primary Care Provider] - Activity Restrictions/Additional Instructions: Your workup today showed left sided dilated renal calyces which were most likely caused by an obstructive process that passed and this is why your pain improved. Talk to your family doctor about potential nephrology and/or urology referral secondary to this finding and return to the ER should you have any further concerns or worsening of symptoms Print Language: Haitian Disposition Disposition: Home, Self Care Discharge Date/Time: 12/03/23 04:40
== END 2023-12-03 04:40 | disposition home or self-care (01) ==
PROVIDERS: Emergency Provider Emergency Medicine; PCP Nurse Practitioner Family; Visit Provider Emergency Medicine
DX: N28.89 Other specified disorders of kidney and ureter (principal); C61 Malignant neoplasm of prostate; I10 Essential (primary) hypertension; Z79.899 Other long term (current) drug therapy; Z87.891 Personal history of nicotine dependence
CPT/HCPCS: 71046; 74176; 80048; 81001; 84484; 85025; 93005; 99285; A4216

== ENCOUNTER → 2023-12-26 | Outpatient (CLI) | payer BC, SELFPAY ==
--- NOTE | 2023-12-26 08:07 | US_ITS ---
STUDY: ABDOMINAL ULTRASOUND - RIGHT UPPER QUADRANT REASON FOR VISIT: Male, 73 years old ADENOCARCINOMA OF PROSTATE, LIVER NODULE TECHNIQUE: Ultrasound evaluation of the right upper quadrant was performed with real-time and static parisi-scale imaging. TECHNICAL QUALITY: Adequate. COMPARISON: Comparison is made with prior CT scan of the abdomen dated December 03, 2023. FINDINGS: Liver: The liver is enlarged and measures 19.5 cm. There is normal echogenicity of the liver. The bile ducts are within normal limits. There is hepatic color flow. The direction of portal flow is hepatopetal. There is a 7 mm x 7 mm x 6 mm cyst in the left lobe. Gallbladder: Normal distended gallbladder. The gallbladder wall measures 3.3 mm. There is a negative sonographic Hernández''s sign. There is no pericholecystic fluid. There are no gallstones. Common Bile Duct (C.B.D.): The common bile duct measures 7 mm. Pancreas: Limited visualization of the pancreas due to overlying bowel gas. Right Kidney: Normal size of the right kidney. The right kidney measures 12.8 cm x 6.3 cm x 6 cm. Normal renal cortex. The right cortex measures 1.6 cm. There is no demonstrated renal mass or cyst. There is no right hydronephrosis. US/Abdomen Limited IMPRESSION: Hepatomegaly and fatty infiltration of the liver. 7 mm x 7 mm x 6 mm cyst in the left lobe of the liver. Electronically Signed: Ant Schmid MD at 11:03 EDT ,
== END | disposition home or self-care (01) ==
LOC: US 08:06
PROVIDERS: PCP Nurse Practitioner Family; Referring Provider Nurse Practitioner Family; Visit Provider Nurse Practitioner Family
DX: C61 Malignant neoplasm of prostate (principal); K76.89 Other specified diseases of liver
CPT/HCPCS: 76705

== ENCOUNTER 2024-08-03 12:20 | Emergency (ER) | payer BC, SELFPAY ==
[2024-08-03 12:20] VITALS: BP 188/83; PULSE 72; RESP 14; TEMP 36.2; O2SAT 98; BMI 35.9
--- NOTE | 2024-08-03 13:11 | RAD_ITS ---
PROCEDURE: Portable upright chest radiograph, one view 08/03/2024 REASON FOR EXAM: RIGHT LOWER ANTERIOR RIB PAIN TECHNIQUE: Portable upright chest radiograph was obtained. COMPARISON: None available FINDINGS: The projection is lordotic. Osseous structures grossly intact. Mild elevation right hemidiaphragm. No focal airspace consolidation, pneumothorax, or pleural effusion. Probable prominent epicardial fat pad at the left lung base. RAD/Chest 1 View (Portable) IMPRESSION: No definite acute cardiopulmonary process. Lordotic projection and probable ep icardial fat pad at the left lung base. If there are persistent symptoms or clinical concern, CT evaluation would be ponce ggested. Reading Location: [facility]
--- NOTE | 2024-08-03 13:12 | EX.ED.DYSGE1 ---
HPI History of Present Illness Chief Complaint: Flank Pain Detail of Chief Complaint: Right side pain Informant: patient Narrative Narrative: Patient with right side pain that started about a week ago with a sore spot in his right side. Today the pain has become worse and expanding over a wider area. He denies urinary symptoms. Denies hematuria. Rates his pain a 5 out of 10. At times pain worse with stretching and thinks its around his right lower rib. He denies cough. Denies recent travel or surgery. Pain is not pleuritic. Food is not affected. He has had no prior abdominal surgeries. Denies rashes. [facility] Medical History Prostate cancer Wears glasses Wears dentures Cancer Gastric reflux Former smoker History of stress test Hypertension Elevated PSA BPH (benign prostatic hyperplasia) Home Medications ?Medication ?Instructions ?Recorded ?Last Taken ?Type acetaminophen 500 mg tablet 500 mg PO DAILY pain 07/15/23 07/29/23 History (Tylenol Extra Strength) cholecalciferol (vitamin D3) 25 25 mcg PO DAILY 07/15/23 07/29/23 History mcg (1,000 unit) tablet famotidine 20 mg tablet 20 mg PO DAILY 07/15/23 07/29/23 History lisinopril 5 mg tablet 10 mg PO DAILY 11/03/23 Unknown History cyclobenzaprine 10 mg tablet 10 mg PO TID PRN Muscle Spasm #20 08/03/24 Unknown Rx TABLETS Allergy/AdvReac Type Severity Reaction Status Date / Time No Known Allergies Allergy Verified 08/03/24 12:21 Surgical History History of bilateral knee replacement History of surgery on upper extremity History of left hip replacement Social History Smoking Status: Former smoker Smokeless tobacco user: other alcohol intake: never substance use type: does not use caffeine: Yes (4+ caffeinated drinks/day) ROS ROS ED Review of Systems ROS Unobtainable: other Constitutional Constitutional ED: Reports lethargy; Denies chills, fever(s), sweats or weight loss Eyes Eyes: Denies blurry vision, change in vision or diplopia ENT ENT ED: Denies rhinorrhea or sore throat Cardiovascular Cardiovascular: Denies chest pain, orthopnea or racing heartbeat Respiratory/Chest Respiratory/Chest: Denies cough, dyspnea, dyspnea on exertion, orthopnea or sputum Gastrointestinal Gastrointestinal: Reports other Details: Right-sided abdominal pain ; Denies abdominal pain, diarrhea, nausea or vomiting Genitourinary Genitourinary ED: Denies dysuria, hematuria or urinary frequency Musculoskeletal Musculoskeletal: Reports other Details: Right side pain ; Denies arthralgias, back pain, myalgias or neck pain Integumentary Denies abscess, Abrasions or rash Neurologic Neurologic: Denies headache(s) or weakness Psychiatric Psychiatric: Denies anxiety, depression or suicidal thoughts Endocrine Endocrinology: Denies polydipsia, polyphagia or polyuria Hematologic/Lymphatic Hematologic/Lymphatic: Denies easy bleeding, easy bruising or lymphadenopathy Allergic/Immunologic Allergic/Immunologic ED: Denies mouth swelling, tongue swelling or urticaria EXAM Physical Exam Const Vital Signs: 08/03/24 12:20 08/03/24 14:20 Temperature 97.1 F L Temperature Source Temporal Pulse Rate 72 16 L Respiratory Rate 14 76 H Blood Pressure 188/83 H 149/81 H Blood Pressure Mean 118 103 Pulse Ox 98 97 Oxygen Delivery Method Room Air Room Air Positive well nourished and well developed General Appearance ED: well developed and NAD HEENT Reports TM's clear and moist mucous membranes normocephalic and atraumatic; Negative for trauma or tenderness Tympanic Membrane ED: Yes TM's clear Eyes PERRL and EOMs intact bilaterally General Eye ED: Negative for pale conjunctiva or scleral icterus Neck no lymphadenopathy, supple and no JVD General: Negative for tenderness Chest Wall inspection of chest normal and palpation of chest normal Chest: Negative for tenderness Resp normal respiratory effort and clear to auscultation bilaterally Effort and Inspection: Negative for respiratory distress or pain with movement Auscultation: Negative for rhonchi, wheezes or diminished lung sounds Cardio regular rate, regular rhythm, S1 normal heart sound, S2 normal heart sound and no murmurs Peripheral Pulses: pulses 2+ throughout GI normal to inspection, nondistended, normoactive bowel sounds, soft to palpation, non-distended and no masses GI Narrative: Mild diffuse tenderness over the right abdomen upper and lower and right lateral. There is no rebound, rigidity, or peritoneal signs. He has some mild tenderness around the right lower costal margin. There is no erythema or warmth. No rashes noted. Back/Spine no CVA tenderness and no thoracic nor lumbar tenderness Extremity normal to inspection General Extremety ED: Negative for edema General Extremity: Negative for edema Neuro oriented x3, CN's II-XII intact bilaterally, no sensory deficits noted and gait normal Sensorium / Orientation: awake, alert, oriented to person, oriented to place and oriented to time Motor Exam: strength 5/5 throughout and strength abnormal Psych mental status grossly normal Skin no rashes or lesions noted and no wounds MDM MDM MDM Narrative Medical decision making narrative: Patient presents to the emergency room with pain in his right side for 1 week without injury. 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 He is not sure if he pulled a muscle. Today has had more discomfort, radiation towards the abdomen. He denies urinary symptoms. Clinically looks well and states he does not feel bad other than certain movements cause more pain. He does have remote history of prostate cancer. IV line established. CBC with differential obtained showed white count 5.1 with hemoglobin 14.4 and platelet count of 163. Chemistries unremarkable. BUN 22 and creatinine 0.81. LFTs were normal. CT scan of the abdomen pelvis showed no acute significant abnormality. He had a cyst in his left lobe of the liver and some smaller subcentimeter lesions which could be cyst versus hemangiomas but given his history of prostate cancer could not rule out metastasis and recommended follow-up with oncology. Patient states that his last PSA in March was 0. He has an appointment with his oncologist on 16 August. Will obtain a urinalysis. Care of patient turned over to evening physician awaiting urinalysis results however if this is normal I feel he can be safely discharged to home. We also did perform a chest x-ray while he was here and there was no evidence of pneumothorax or acute process or other abnormality. Patient will be given a prescription for Flexeril. He will use ibuprofen for discomfort. Clinically I suspect likely musculoskeletal chest wall pain. Pain is relatively reproducible. Lab Data Attestation: I reviewed the patient's lab results. Labs: Laboratory Results - last 24 hr 08/03/24 13:10 WBC 5.1 RBC 4.65 Hgb 14.4 Hct 41.5 MCV 89.2 MCH 31.0 MCHC 34.7 RDW Std Deviation 46.2 H RDW Coeff of Juancarlos 14.4 Plt Count 163 MPV 10.6 Immature Gran % (Auto) 0.800 Neut % (Auto) 72.9 H Lymph % (Auto) 16.6 L Kidder % (Auto) 7.1 Eos % (Auto) 2.0 Baso % (Auto) 0.6 Absolute Neuts (auto) 3.7 Absolute Lymphs (auto) 0.84 Nucleated RBC % 0 Sodium 141 Potassium 4.6 Chloride 106 Carbon Dioxide 24.2 Anion Gap 11 BUN 22 H Creatinine 0.81 Estim Creat Clear Calc 86.30 Est GFR (MDRD) Non-Af 91 BUN/Creatinine Ratio 27.1 H Glucose 92 Calcium 9.3 Total Bilirubin 0.21 AST 18 ALT 17 Alkaline Phosphatase 107 Total Protein 6.9 Albumin 4.2 Globulin 2.7 Albumin/Globulin Ratio 1.5 Radiography Diagnostic Testing: Clinical Impression(s) from Imaging Studies Chest X-Ray 08/03/24 13:11 IMPRESSION: No definite acute cardiopulmonary process. Lordotic projection and probable epicardial fat pad at the left lung base. If there are persistent symptoms or clinical concern, CT evaluation would be suggested. Reading Location: [facility] Abdom[facility]/Pelvis CT 08/03/24 13:50 IMPRESSION: 1. No acute noncontrast findings. No hydronephrosis or ureteral calculus identified. 2. Hepatic cyst and additional subcentimeter hypodensities too small to characterize. Although likely additional cysts/hemangiomas, given reported history of prostate cancer, recommend clinical/oncologic follow-up. Comparison with any available outside imaging may also be helpful to establish stability. 3. Splenomegaly. 4. Additional description as above. Reading Location: [id number] Discharge Plan Triage Chief Complaint: Flank Pain ED Provider: Kian Monterroso Dx/Rx/DC Orders Clinical Impression: Acute chest wall pain Instructions: ED Chest Wall Pain, Costochondritis, ED Flank Pain, Uncertain Cause Prescriptions: New cyclobenzaprine 10 mg tablet 10 mg PO TID PRN (Reason: Muscle Spasm) Qty: 20 0RF No Action famotidine 20 mg tablet 20 mg PO DAILY acetaminophen [Tylenol Extra Strength] 500 mg tablet 500 mg PO DAILY cholecalciferol (vitamin D3) 25 mcg (1,000 unit) tablet 25 mcg PO DAILY lisinopril 5 mg tablet 10 mg PO DAILY Primary Care Provider: Lida Prater NP Referrals: Lida Prater NP, [facility] [Primary Care Provider] - 5-7 Days Activity Restrictions/Additional Instructions: Keep your appointment with your oncologist. You may use ibuprofen for discomfort and heat to the area. Print Language: Pakistani Disposition Disposition: Home, Self Care
[2024-08-03 13:24] LABS: Absolute Lymphocyte Count 0.84 X10^3/uL (0.83-4.51); Absolute Neutrophil Count 3.7 X10^3/uL (2.0-7.7); Basophil# 0.03 X10^3/uL; Basophil% 0.6 % (0-1); Hematocrit 41.5 % (40-54); Hemoglobin 14.4 g/dL (13.0-16.5); Lymphocyte # 0.84 X10^3/ul (0.83-4.51); Lymphocyte % 16.6 % (19-41); Mean Corp Hgb Conc 34.7 g/dL (32-36); Mean Corpuscular Volume 89.2 fL (80-94); Mean Platelet Vol. 10.6 fl (6.2-12.0); Monocyte# 0.36 X10^3/uL; Monocyte% 7.1 % (0-10); NRBC Flagged by Analyzer 0 % (0-5); Neutrophil # 3.69 X10^3/uL (2.7-7.7); Neutrophil % 72.9 % (47-70); Platelet Count 163 K/mm3 (150-450); RBC Distribution Width CV 14.4 % (11.6-14.6); RBC Distribution Width SD 46.2 fl (35.1-43.9); Red Blood Count 4.65 M/mm3 (4.6-6.2); White Blood Count 5.1 K/mm3 (4.4-11.0)
--- NOTE | 2024-08-03 13:50 | CT_ITS ---
PROCEDURE: ABDOMEN/PELVIS WITHOUT CONT 08/03/2024 REASON FOR EXAM: RIGHT FLANK PAIN TECHNIQUE: Abdomen and pelvis CT without intravenous contrast. Noncontrast technique limits evaluation of the abdominal and pelvic viscera. Coronal and Sagittal reformats were generated. One or more dose reduction techniques were used (e.g., Automated exposure control, adjustment of the mA and/or kV according to patient size, use of iterative reconstruction technique). PATIENT PREPARATION: Per protocol ORAL CONTRAST TYPE: None. AMOUNT: mL RADIATION DOSE SUMMARY: CTDlvol: 17.39 mGy DLP: 990.52 mGycm One or more dose reduction techniques were used (e.g., Automated exposure control, adjustment of the mA and/or kV according to patient size, use of iterative reconstruction technique). COMPARISON: None FINDINGS: Note that evaluation of the abdominopelvic viscera, vasculature, and remaining soft tissues is limited in the absence of IV contrast. Artifact related to LEFT hip arthroplasty. Lung bases: Atelectasis/scarring. Small/moderate hiatal hernia containing mostly fat. Chronic granulomatous disease. Liver: Hepatic cyst and additional subcentimeter hypodensities too small to characterize. Granuloma. Spleen: Splenomegaly, 15.4 cm.. Granulomas. Gallbladder: Unremarkable. Pancreas: Unremarkable. Adrenals: Unremarkable. Kidneys: Symmetric mild nonspecific perinephric stranding. Bilateral renal sinus cysts. No hydronephrosis or ureteral calculus identified. Bowel: Diverticulosis.. Normal caliber appendix. Lymph nodes: Unremarkable. Vasculature: Mild calcific atherosclerosis.. Peritoneum: Unremarkable. Bladder: Somewhat underdistended and partially obscured by artifact related to LEFT hip arthroplasty, grossly unremarkable.. Reproductive Organs: Prostatic fiducial markers. Body Wall: Small fat containing umbilical hernia. Small subcutaneous nodular structure abutting the dermis near the umbilicus to the LEFT, nonspecific but compatible with a sebaceous cyst or epidermal inclusion cyst. Small fat containing RIGHT inguinal hernia.. Bones: Suspected demineralization. Multilevel spondylosis. Partially imaged LEFT hip arthroplasty. Mild lumbar dextroscoliosis may be positional. Degenerative changes of the symphysis pubis.. CT/Abdomen/Pelvis without Cont IMPRESSION: 1. No acute noncontrast findings. No hydronephrosis or ureteral calculus ident ified. 2. Hepatic cyst and additional subcentimeter hypodensities too small to charact erize. Although likely additional cysts/hemangiomas, given reported history of prostate cancer, recommend clinica l/oncologic follow-up. Comparison with any available outside imaging may also be helpful to establish stability. 3. Splenomegaly. 4. Additional description as above. Reading Location: [id number]
[2024-08-03 13:51] LABS: ALB/GLOB Ratio 1.5 RATIO (0.9-2.4); AST(SGOT) 18 U/L (<=37); Alanine Aminotransfer ALT/SGPT 17 U/L (<=46); Albumin, Serum 4.2 g/dL (3.4-4.8); Alkaline Phosphatase 107 U/L (40-129); Anion Gap 11 (5-15); BUN 22 mg/dL (4-19); BUN/Creat Ratio 27.1 RATIO (10-20); Calcium,Total 9.3 mg/dL (7.6-11.0); Carbon Dioxide 24.2 mmol/L (21.0-32.0); Chloride 106 mmol/L (98-108); Creatinine, Serum 0.81 mg/dL (0.70-1.20); EST Glomerular Filtration Rate 91 (>60); Globulin 2.7 g/dL (2.2-4.2); Glucose 92 mg/dL (70-99); Potassium 4.6 mmol/L (3.3-5.1); Protein, Total 6.9 g/dL (5.9-8.4); Sodium Level 141 mmol/L (133-145); Total Bilirubin 0.21 mg/dL (0.00-1.30)
[2024-08-03 14:20] VITALS: BP 149/81; PULSE 16; RESP 76; O2SAT 97
[2024-08-03 15:29] LABS: Bacteria 0 SEEN /hpf (None Seen); Mucous, Urine 0 SEEN /hpf (<or=2+); Red Blood Cells-Urine 0 SEEN /hpf (0-5)
[2024-08-03 15:35] LABS: Color, Urine Yellow (Yellow); Glucose, Dipstick Normal (Normal); Ketone-Dipstick Negative (Negative); Leukocyte Esterase-Dipstick Negative /ul (Negative); Nitrite-Dipstick Negative (Negative); Occult Blood-Urine Negative /ul (Negative); Protein-Dipstick 15 mg/dl (Negative); Urine Bilirubin Dipstick Negative (Negative); Urine Clarity Clear (Clear); Urine Urobilinogen Normal (Normal)
[2024-08-03 15:45] LABS: Squamous Epithelial Cells - UA 0-5 SEEN /hpf (0-5); White Blood Cells 0-5 SEEN /hpf (0-5)
[2024-08-03 16:00] VITALS: BP 160/88; PULSE 68; O2SAT 94
[2024-08-03 16:15] VITALS: BP 160/88; PULSE 68; RESP 76; TEMP 36.2; O2SAT 94
== END 2024-08-03 16:21 | disposition home or self-care (01) ==
PROVIDERS: Emergency Provider Emergency Medicine; PCP Nurse Practitioner Family; Visit Provider Emergency Medicine
DX: R07.89 Other chest pain (principal); Z87.891 Personal history of nicotine dependence; I10 Essential (primary) hypertension; K21.9 Gastro-esophageal reflux disease without esophagitis; K76.89 Other specified diseases of liver
CPT/HCPCS: 71045; 74176; 80053; 81001; 85025; 99283